=== PATIENT | female | born 1960 | race African-American/Black ===

== ENCOUNTER → 2018-03-19 | Outpatient (CLI) | payer OTHER ==
--- NOTE | 2018-03-20 10:40 | RADIOLOGY REPORT (SQ) ---
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 RADIONUCLIDE AND DOSE: 9.1 mCi F18 FDG The route of agent administration: Intravenous FASTING BLOOD SUGAR: 76 mg/dl CONTRAST TYPE AND DOSE: No CT contrast given. TECHNIQUE: Blood glucose level was verified. Above dose of FDG was injected intravenously. 2-D seg mented attenuation correction images were obtained from the base of the skull to the midthighs. Nonc ontrast CT images were obtained for attenuation correction and fusion with emission images. CT image s were performed without oral or intravenous contrast and are not sensitive for parenchymal lesions. A series of overlapping emission PET images were obtained. Images reviewed and manipulated at [facility] work station by the radiologist. Images stored on PACS. LIMITATIONS: None. FINDINGS: HEAD AND NECK: No areas of abnormal metabolic activity in the soft tissues of the head and neck. CHEST: No areas of abnormal metabolic activity in the chest. ABDOMEN AND PELVIS: No areas of abnormal metabolic activity in the abdomen or pelvis. Expected physi ologic activity is present in the genitourinary system and bowel. PROXIMAL LOWER EXTREMITIES: No areas of abnormal metabolic activity in the soft tissues of the lower extremities. BONES: No abnormal metabolic activity in the visualized skeleton. ADDITIONAL CT FINDINGS: 5 mm nodule in the middle lobe. Anastomosis sigmoid colon. OTHER: No other significant findings. IMPRESSION: 1. No evidence of local recurrence. 2. 5 mm pulmonary nodule below size threshold for PET negative predictive value. Chest CT followup i n 6 to 12 months is recommended. TECHNICAL DOCUMENTATION: JOB ID: [id number] [employer]- All Rights Reserved Reading location - IP/workstation name: [email or web address]
== END ==
LOC: RAD 19:05
PROVIDERS: ATTEND Otolaryngology
DX: J38.3 Other diseases of vocal cords (principal); Z85.9 Personal history of malignant neoplasm, unspecified; R49.0 Dysphonia; R91.1 Solitary pulmonary nodule
CPT/HCPCS: 78815; A9552

== ENCOUNTER 2018-05-03 11:13 | Day surgery (SDC) | payer OTHER ==
[2018-05-03] MEDS ORDERED: EPINEPHRINE INJ/PF 1 MG/1 ML AMPULE ONE (11:25)
[2018-05-03] MEDS ORDERED: OXYMETAZOLINE HCL 0.05% NASAL SPRAY 15 ML BOTTLE ONE (11:25)
[2018-05-03] MEDS ORDERED: MIDAZOLAM 2 MG/2 ML INJ ONE (12:32)
[2018-05-03] MEDS ORDERED: FENTANYL CITRATE INJ/PF 100 MCG/2 ML AMPUL ONE (12:32)
[2018-05-03] MEDS ORDERED: PROPOFOL INJ 200 MG/20 ML VIAL IV ONE (12:32)
[2018-05-03 12:52] LABS: HEMATOCRIT 38.3 % (36.0-47.0); HEMOGLOBIN 12.2 g/dL (12.0-15.5); MEAN CORPUSCULAR HEMOGLOBIN 23.5 pg (27.0-33.4); MEAN CORPUSCULAR HGB CONC 31.9 g/dL (32.0-36.0); MEAN CORPUSCULAR VOLUME 74 fl (80-97); PLATELET COUNT 328 10^3/uL (150-450); RED BLOOD COUNT 5.21 10^6/uL (3.72-5.28); WHITE BLOOD COUNT 9.7 10^3/uL (4.0-10.5)
[2018-05-03] MEDS ORDERED: PROMETHAZINE HCL INJ 25 MG/1 ML VIAL IV PRN ×2 (13:37)
[2018-05-03] MEDS ORDERED: MEPERIDINE HCL/PF INJ 25 MG/1 ML DISP.SYRIN IV PRN (13:37)
[2018-05-03] MEDS ORDERED: DIPHENHYDRAMINE HCL 50 MG/ML VIAL IV PRN (13:37)
[2018-05-03] MEDS ORDERED: FENTANYL CITRATE INJ/PF 100 MCG/2 ML AMPUL IV PRN ×3 (13:37)
[2018-05-03] MEDS ORDERED: OXYCODONE-ACETAMINOPHEN 5-325 MG TABLET PO PRN ×2 (13:37)
[2018-05-03] MEDS ORDERED: HYDROCODONE/ACETAMINOPHEN 5-325 MG TABLET PO PRN (14:53)
[2018-05-03] MEDS ORDERED: ONDANSETRON HCL INJ/PF 4 MG/2 ML SDV IV PRN (14:53)
[2018-05-03] MEDS ORDERED: HYDROCOD/ACETAMIN 7.5-325 MG/15 ML ORAL SOLN UDCUP ONE (15:26)
[2018-05-03 16:35] VITALS: BP 118/72
--- NOTE | 2018-05-04 08:44 | OPERATIVE REPORT E ---
Operative Report NAME: AARON ROSARIO : 1960 AGE: 57Y DATE OF SURGERY: 05/03/2018 ROOM: PREOPERATIVE DIAGNOSIS: 1. HISTORY OF LARYNGEAL CANCER. 2. BILATERAL VOCAL CORD LEUKOPLAKIA CHANGES. 3. CHRONIC DYSPHONIA WITH HOARSENESS. POSTOPERATIVE DIAGNOSIS: 1. HISTORY OF LARYNGEAL CANCER. 2. BILATERAL VOCAL CORD LEUKOPLAKIA CHANGES. 3. CHRONIC DYSPHONIA WITH HOARSENESS. OPERATION: Microscopic direct laryngoscopy with bilateral true vocal cord biopsies. SURGEON: GUIDO GRAYSON D.O. ANESTHESIA: General endotracheal tube. ANESTHESIA STAFF: Latisha CASTAÑEDA ESTIMATED BLOOD LOSS: 1 mL. FLUIDS: COMPLICATIONS: None. DRAINS: None. SPONGE COUNT: Verified. MATERIALS FORWARDED SPECIMEN: Multiple left vocal cord biopsies and multiple right vocal cord biopsies. FINDINGS: The left and right true vocal cords appeared with greatly diminished leukoplakia-type changes on microscopic direct laryngoscopy today. Residual areas of concern at the left and right vocal cords at the anterior, mid, and posterior aspects were all biopsied. There are numerous missing teeth and poor dentition overall. 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 She has been [facility] over the years with regular ENT and endoscopic followup and evaluations being performed. The patient in the past 3 months has noted her hoarseness has become progressively worse and she has complained of neck pain. She says these were the exact same symptoms she experienced when she was first diagnosed with laryngeal cancer. On repeated endoscopic evaluation the patient was noted to have thick leukoplakia type changes at each vocal cord. She also underwent recent PET/CT imaging with no increased SUV activity being noted and the exam was unremarkable for metastatic or recurrent disease. The patient is also followed by pulmonary medicine for a history of chronic asthma and COPD. After extensive discussion with the patient, recommendation and plan was to proceed to the main operating room for a microscopic direct laryngoscopy with bilateral vocal cord biopsies which she voiced an understanding of and agreed with. The procedure and all of its risks and complications were all discussed in detail with the patient which she voiced an understanding of, agreed with, and consent was obtained. PROCEDURE: The patient was taken to the main operating room and was placed on the operating room table in the supine position. Appropriate monitors were placed. Using Mask and IV access, general anesthesia was induced. The patient was transorally intubated without difficulty. There was a mouth guard placed over the upper teeth. There are numerous missing teeth and poor dentition overall. At this point, the Rigid laryngoscope was introduced and the vocal cords were brought into view and the patient was placed into indirect suspension. The operating room microscope was brought into position and the patient underwent microscopic direct laryngoscopy with bilateral vocal cord biopsies in multiple but different locations on each side as noted above. There was an Afrin-soaked neuro berna that was utilized and adequate hemostasis was noted. The patient was then released from suspension and the operating room microscope was withdrawn. The Rigid laryngoscope was removed. The mouth guard was removed from over the upper teeth. There was no damage to the lips, teeth, tongue, gums, and inside the mouth. The patient was returned to the anesthesia staff and was allowed to emerge from general anesthesia. The patient was extubated in the main operating room without difficulty and was then transported to the Post Anesthesia Recover Unit in stable condition. There were no complications. DICTATING PHYSICIAN: GUIDO GRAYSON D.O. [id number] PHY#: [id number] ID: [id number] JOB#: [id number] ACCT: [id number] cc:GUIDO GRAYSON D.O. >
== END 2018-05-03 16:35 | disposition home or self-care (01) ==
LOC: OROUT 11:13
PROVIDERS: ATTEND Otolaryngology
DX: J38.3 Other diseases of vocal cords (principal); R49.0 Dysphonia; J02.9 Acute pharyngitis, unspecified; Z85.21 Personal history of malignant neoplasm of larynx; K21.0 Gastro-esophageal reflux disease with esophagitis; J45.909 Unspecified asthma, uncomplicated; Z88.5 Allergy status to narcotic agent; Z79.51 Long term (current) use of inhaled steroids
CPT/HCPCS: 36415; 85027; 88305 ×2; 31535; J2250; J3010; J3490; J2704; 320; J0171